=== PATIENT | male | born 1950 | race Caucasian/White ===

== ENCOUNTER → 2017-08-13 | Day surgery (SDC) | payer MEDICARE ==
[~2017-08-13] MED LIST: LIDOCAINE 2% INJ 100 MG/5 ML SDV (FOR ANES.) As Ordered; PROPOFOL 200 MG/20 ML VIAL As Ordered
[2017-08-13] MEDS: NS 1,000 ML IV (11:52)
== END | disposition home or self-care (01) ==
LOC: M OPP 11:36
DX: R19.5 Other fecal abnormalities (principal); Z83.71 Family history of colonic polyps; D12.2 Benign neoplasm of ascending colon; D12.0 Benign neoplasm of cecum; K64.0 First degree hemorrhoids; K57.30 Diverticulosis of large intestine without perforation or abscess without bleeding; I10 Essential (primary) hypertension; M54.2 Cervicalgia; Z85.820 Personal history of malignant melanoma of skin; R06.83 Snoring; F17.210 Nicotine dependence, cigarettes, uncomplicated; Z79.899 Other long term (current) drug therapy
CPT/HCPCS: 45380

== ENCOUNTER → 2020-09-26 | Outpatient (CLI) | payer MEDICARE ==
[~2020-09-26] MED LIST changes: +HYDR12CA PO; -LIDOCAINE 2% INJ 100 MG/5 ML SDV (FOR ANES.) As Ordered; +LISI10TA22 PO; +MULT1TAB10 PO; -PROPOFOL 200 MG/20 ML VIAL As Ordered
--- NOTE | 2020-09-26 15:41 | REP ---
INDICATION: NICOTINE DEPENDENCE. COMPARISON: None. TECHNIQUE: The study is performed without IV contrast. Images are presented at lung windowing only. There the following lung nodules: Image 52, right upper lobe, 4 mm. Image 63, right middle lobe, ground-glass density measuring 8 mm. Image 71, right lower lobe, calcified granuloma measuring 9 mm. Image 73, right lower lobe laterally, calcified granuloma measuring 4 mm. FINDINGS: The 4 mm right upper lobe lung nodule is a category 2 lung nodule with the probability of malignancy less than 1%. The right middle lobe ground-glass density is a category 2 lung lesion with the probability of malignancy less than 1%. Both right lower lobe granulomas are category 2 lung nodules with the probability of malignancy less than 1%. IMPRESSION: Category [address] low-[address] lung [address] CT of the chest. Probability of malignancy is less than 1%. Depending on risk factors consider annual follow-up low-dose lung screening chest CT. <Electronically signed by Gregory Rodrigues > 09/26/20 [id number]
== END ==
LOC: M RAD 13:34
PROVIDERS: ATTEND Family Medicine
DX: F17.210 Nicotine dependence, cigarettes, uncomplicated (principal); Z12.2 Encounter for screening for malignant neoplasm of respiratory organs

== ENCOUNTER → 2021-10-01 | Outpatient (CLI) | payer MEDICARE | LOC: M RAD 14:25 | PROVIDERS: ATTEND Family Medicine | DX: Z12.2 Encounter for screening for malignant neoplasm of respiratory organs (principal); F17.210 Nicotine dependence, cigarettes, uncomplicated; R91.1 Solitary pulmonary nodule; J84.10 Pulmonary fibrosis, unspecified ==

== ENCOUNTER → 2022-10-02 | Outpatient (CLI) | payer MEDICARE | LOC: M RAD 13:49 | PROVIDERS: ATTEND Family Medicine | DX: Z12.2 Encounter for screening for malignant neoplasm of respiratory organs (principal); F17.200 Nicotine dependence, unspecified, uncomplicated ==

== ENCOUNTER → 2023-09-08 | Outpatient (REF) | payer MEDICARE, OTHER | LOC: M SFHCDERM 17:25 | PROVIDERS: ATTEND Dermatology | DX: B07.9 Viral wart, unspecified (principal) ==

== ENCOUNTER → 2023-11-10 | Outpatient (CLI) | payer MEDICARE | LOC: M RAD 14:31 | PROVIDERS: ATTEND Family Medicine | DX: Z12.2 Encounter for screening for malignant neoplasm of respiratory organs (principal); F17.210 Nicotine dependence, cigarettes, uncomplicated; J84.10 Pulmonary fibrosis, unspecified; R91.1 Solitary pulmonary nodule; I70.0 Atherosclerosis of aorta; I25.10 Atherosclerotic heart disease of native coronary artery without angina pectoris ==

== ENCOUNTER 2024-07-19 08:22 | Day surgery (SDC) | payer MEDICARE ==
[~2024-07-19] VITALS: Ht 175.3 cm; Wt 92.4 kg
[~2024-07-19 08:22] MED LIST changes: +FINA5TAB2 PO; +METO1TAB7 PO; +MULTTAB61 PO; +PANT20TA6 PO; +TAMS1CAP17 PO; +VITA100093 PO
[2024-07-19] MEDS ORDERED: LIDOCAINE 2% 100MG/5ML SDV (FOR ANES.) As Ordered ONE (08:58)
[2024-07-19] MEDS ORDERED: propofoL 200 MG/20 ML VIAL As Ordered ONE (08:58)
[2024-07-19 09:07] VITALS: TEMP 96.8
[2024-07-19] MEDS: IPRATROPIUM 0.5MG/ALBUTEROL 2.5MG INH SOL UD 3ML (DUONEB) NEB STA (09:20)
[2024-07-19 10:34] VITALS: BP 112/67; O2SAT 94
== END 2024-07-19 10:46 | disposition home or self-care (01) ==
LOC: M OPP 08:22
PROVIDERS: ATTEND Internal Medicine Gastroenterology
DX: Z12.11 Encounter for screening for malignant neoplasm of colon (principal); K64.0 First degree hemorrhoids; K57.30 Diverticulosis of large intestine without perforation or abscess without bleeding; Z86.0100 Personal history of colon polyps, unspecified; R12 Heartburn; K22.89 Other specified disease of esophagus; Z79.899 Other long term (current) drug therapy; F17.210 Nicotine dependence, cigarettes, uncomplicated
CPT/HCPCS: 43239; 88305; G0105